=== PATIENT | female | born 1950 | race Caucasian/White ===

== ENCOUNTER 2017-02-08 17:55 | Inpatient (IN) ==
[2017-02-08] MEDS ORDERED: BENTYL PO PRN (20:56)
[2017-02-08] MEDS ORDERED: ZOFRAN IV PRN (20:56)
[2017-02-08 21:29] LABS: MANUAL DIFF NEEDED? NO
[2017-02-08 21:38] LABS: BASO% 0.4 % (0.0-0.8); EOS# 0.16 X1000 (0.0-0.7); EOS% 1.4 % (0.0-10.0); HEMATOCRIT 41.6 % (37.0-47.0); HEMOGLOBIN 13.9 g/dL (12.0-16.0); IMM GRAN# 0.22 X1000 (0.0-0.04); LYMPH# 4.01 X1000 (1.2-3.4); LYMPH% 35.9 % (20.5-51.1); MCH 29.4 PG (27-31); MCHC 33.4 g/dL (33-37); MCV 87.9 FL (81-99); MONO# 0.76 X1000 (0.11-0.59); MONO% 6.8 % (1.7-9.3); MPV 10.8 FL (7.4-10.4); NEUT% 53.5 % (42.2-75.2); PLT 207 X1000 (130-400); RBC 4.73 XMIL (4.2-5.4)
[2017-02-08 21:42] LABS: INR 1.05; PROTIME 11.1 Seconds (9.2-11.7)
[2017-02-08 21:58] LABS: AGAP 14; ALBUMIN 3.9 g/dL (3.5-5.0); ALKALINE PHOSPHATASE 94 U/L (32-104); AMYLASE 31 U/L (20-200); BUN 11 mg/dL (8-22); CALCIUM 8.9 mg/dL (8.8-10.2); CHLORIDE 99 mmol/L (98-107); COSMO 288; GOT 13 U/L (10-30); GPT 12 U/L (10-36); SODIUM 142 mmol/L (136-145); TCO2 29 mmol/L (25-35); TOTAL BILIRUBIN 0.11 mg/dL (0.20-1.00); TOTAL PROTEIN 6.1 g/dL (6.3-8.3)
[2017-02-08 22:46] LABS: SED RATE 3 mm/hr (0-20)
--- NOTE | 2017-02-08 23:05 | HISTORY AND PHYSICAL ---
CHIEF COMPLAINT: 1. Intractable diarrhea for the last 1 month. 2. 5-6 times per day and weight lost 22 pounds. 3. It wakes her from sleep. HISTORY OF PRESENT ILLNESS: She is a 67-year-old white female, basically came to my office for back pain. While I was examining, patient went to the bathroom with episodes of incontinence of stool. According to the family she is getting this 5-6 times a day, along with weight loss. It is also wakes her from sleep. Blood pressure was 80/60. She was admitted to the hospital for observation for impending dehydration, diarrhea and weight loss. Patient was seen before by Dr. Harrison. PAST MEDICAL HISTORY: History of pancreatitis. Right bundle branch block. CAD. Diabetes. Hypertension. Hepatic cyst. Hyperlipidemia. Osteoarthritis. Reflux esophagitis. Intracranial aneurysm repair, status post craniotomy and clipping on the right side. PAST SURGICAL HISTORY: Tonsillectomy. Bypass surgery. Cholecystectomy. Hysterectomy. Tubal ligation. MEDICATIONS: Klonopin 0.5 p.o. b.i.d. Flexeril 5 mg daily. Gabapentin 300 p.o. b.i.d. Lisinopril 20 mg daily. Metformin 1000 p.o. b.i.d. Prilosec 40 mg daily. Paxil 20, 2 tablets daily. Percocet 5 mg daily. Simvastatin 20 daily. Toujeo 20 units night time. ALLERGIES: Not known. SOCIAL HISTORY: , 3 children. Lives in [place]. No alcohol. Disabled. FAMILY HISTORY: Father of blood clots at 87. Mom of heart attack at 63. IMMUNIZATIONS: Influenza vaccine 2015, pneumococcal vaccine 2005. Mammography 03/2014, colonoscopy 01/[address] Harrison. REVIEW OF SYSTEMS: HEENT: No headache. Dizziness upon standing. No vision problem. No sore throat. Neck: No goiter. No lymphadenopathy. No bruit. Cardiopulmonary: No chest pain, shortness of breath, PND, orthopnea. GI: Diarrhea, abdominal cramps, nocturnal periodicity. Possible blood in the stool. Weight loss. : No history of hesitancy, frequency. Back pain. Leg cramps. Neurologic: Dizziness. No focal symptoms. PHYSICAL EXAMINATION: VITAL SIGNS: Afebrile. Blood pressure 90/50 in my office. HEENT: Slightly dry mucous membranes. Atraumatic normocephalic. TMs are normal. Nose and throat within normal limits. NECK: Supple. No lymphadenopathy. No goiter. CHEST: Bilateral air entry. No rales, no wheezing. HEART: Sounds are regular. ABDOMEN: Belly is soft, nontender. Good bowel sounds. No masses palpable. EXTREMITIES: No peripheral edema, cyanosis, clubbing. NEUROLOGIC: Nonfocal. INVESTIGATIONS: CBC: White cell count 11, hematocrit 41, platelets 207,000. PT 11.8, INR 1. SMA7: Sodium 142, potassium 4, chloride 99, BUN 11, creatinine 0.8, glucose 205. B12 is normal. TSH is normal. Amylase, lipase normal. ASSESSMENT AND PLAN: A 67-year-old white female, admitted to the hospital with diarrhea for the last 1 month associated with weight loss. 1. Dehydration with hypotension. Plan is IV fluids. Follow up on stool studies. Previous colonoscopy. CT of the abdomen and pelvis were negative in 2014. 2. Type 2 diabetes. On metformin and Toujeo. Last A1c was 6.2. C-peptide 1.32. 3. Coronary artery disease status post bypass, aspirin and hypertension on lisinopril. 4. Hyperlipidemia on simvastatin. 5. Neuropathy pain. On Neurontin. 6. Chronic anxiety on Klonopin 0.5 p.o. b.i.d. 7. Depression. On Paxil 20 mg daily. We will reconcile home medications after the initial workup and follow up on stool studies. Chronic pain on Percocet by the pain clinic along with the gabapentin. We will follow up on the clinical course. cc: Wilner Salazar MD
[2017-02-08 23:22] LABS: URIC ACID 2.6 mg/dL (2.4-5.7)
[2017-02-08] MEDS: SODIUM CHLORIDE 0.9% INJ SCH (23:40)
[2017-02-08] MEDS: PROTONIX IV SCH (23:42)
[2017-02-08] MEDS: NS 1,000 ML IV SCH (23:43)
[2017-02-09] MEDS: PERCOCET-5 PO SCH ×4 (00:27→21:49)
--- NOTE | 2017-02-09 09:17 | PROGRESS NOTE ---
DATE: 02/09/2017 SUBJECTIVE: The patient had 3 episodes of diarrhea. Low blood pressure. Lower abdominal cramps. The patient was seen before by Dr. Harrison in 2014. She has lost 22 pounds. REVIEW OF SYSTEMS: None reported. PHYSICAL EXAMINATION: Vital Signs: She is afebrile, blood pressure is 109/62. Height 5 feet 2 inches, weights 122 pounds. HEENT: Within normal limits. Neck: Supple. No lymphadenopathy. No goiter. Chest: Clear to auscultation. Heart: Heart sounds are regular. Abdomen: Belly is soft, scaphoid. Tenderness in the lower part of the abdomen. No signs of peritonitis. Extremities: No peripheral edema or cyanosis. Neurologic: no obvious neurological deficits. IMAGING AND LABORATORY DATA: CBC and SMA-7 are normal. Glucose is 142. Total protein 6.1. B12 and TSH are normal. Cultures: Stool for white cell count is none. Stool for blood is negative. Clostridium difficile was negative. Previous colonoscopy is negative. ASSESSMENT AND PLAN: 1. Intractable diarrhea for the last 1 month. So far, no signs of active colitis. Etiology to be determined. It could be irritable bowel syndrome in light of previous workup. Will get a CT of the abdomen and pelvis today. Continue intravenous fluids. Begin with clear liquids. 2. Diabetes. Follow up on sliding scale with insulin coverage. Bentyl as needed. 3. Orthostatic blood pressure changes. Based on the CT, further recommendations will be followed. TIME SPENT: The level of documentation is 25 minutes. cc: Wilner Salazar MD
[2017-02-09 10:47] LABS: URINE MICRO REVIEW NEEDED? NO; URINE SOURCE VOIDED
[2017-02-09 10:56] LABS: BILIRUBIN URINE NEGATIVE (NEGATIVE); BLOOD URINE NEGATIVE (NEGATIVE); COLOR STRAW; GLUCOSE URINE NEGATIVE (NEGATIVE); LEUKOCYTES URINE NEGATIVE (NEGATIVE); NITRITE URINE NEGATIVE (NEGATIVE); PH URINE 5.5; PROTEIN URINE NEGATIVE (NEGATIVE); SP GRAVITY URINE 1.006; TURBIDITY URINE HAZY (CLEAR); UROBILINOGEN URINE NORMAL (NORMAL)
[2017-02-09 10:57] LABS: UR EPITHELIAL CELLS <10 /HPF (<10); URINE BACTERIA NEGATIVE /HPF; URINE RBC <10 /HPF (<10); URINE WBC <10 /HPF (<10)
[2017-02-09] MEDS: HUMALOG SUBQ SCH ×4 (12:20→21:36)
[2017-02-09] MEDS: CULTURELLE PO SCH (12:23)
[2017-02-09] MEDS: NS 1,000 ML IV SCH (12:30)
--- NOTE | 2017-02-09 14:56 | Diag Imaging Result Document ---
PROCEDURE NAME: ABDOMEN/PELVIS W/CONTRAST - 02/09/2017 CT ABDOMEN AND PELVIS WITH ORAL AND INTRAVENOUS CONTRAST: Exam performed with oral and intravenous contrast. A dose-reduction protocol was used. COMPARISON: Compared with 07/05/2016. FINDINGS: The visualized lung bases appear clear. There are multiple hepatic cysts similar to the previous exam. There are no acute abnormalities of the liver, spleen, adrenal glands, or pancreas identified. The gallbladder is surgically absent. There is a small left renal cyst similar to the previous exam. The bilateral kidneys otherwise enhance homogeneously. There is no hydronephrosis. There are no substantially enlarged lymph nodes identified. There is no evidence of bowel obstruction. The appendix appears normal. There is mild uncomplicated colonic diverticulosis. There is possibly mild wall thickening along the left colon from the splenic flexure to the rectum although this may be exaggerated by limited distention of the lumen. The possibility of mild left colitis cannot be excluded. There is no substantial inflammation of pericolic fat seen. There is no free air, free fluid, or abscess identified. Images of the pelvis show postsurgical changes of hysterectomy. There is no abnormal pelvic mass or fluid collection identified. There is possibly some generalized mild thickening of the thickening of the urinary bladder lentz but this is stable. IMPRESSION: 1. Possible mild left colitis. No abscess. No free air. 2. No bowel obstruction. Normal appendix. 3. Stable nonspecific mild thickening of lentz of urinary bladder. 4. Hepatic and renal cysts.
[2017-02-09] MEDS ORDERED: D50W SYRINGE IV ONE (19:53)
[2017-02-09] MEDS ORDERED: D50W SYRINGE ONE (19:58)
[2017-02-09] MEDS: SODIUM CHLORIDE 0.9% INJ SCH (21:49)
[2017-02-09] MEDS: PROTONIX IV SCH (21:49)
[2017-02-10] MEDS: NS 1,000 ML IV SCH ×2 (02:07→14:39)
[2017-02-10] MEDS: PERCOCET-5 PO SCH ×2 (05:39→14:13)
[2017-02-10] MEDS: HUMALOG SUBQ SCH ×3 (06:31→16:09)
[2017-02-10] MEDS ORDERED: FLAGYL 500 MG/NS 100 ML IV SCH (09:00)
[2017-02-10] MEDS: FLAGYL PO SCH ×2 (09:42→16:14)
[2017-02-10] MEDS: CULTURELLE PO SCH (09:42)
[2017-02-10 14:21] VITALS: BP 123/71
--- NOTE | 2017-02-12 18:46 | DISCHARGE SUMMARY ---
ADMISSION DATE: 02/08/2017 DISCHARGE DATE: 02/10/2017 DISCHARGE DIAGNOSES: Uncontrolled diarrhea associated with hypotension, probably from colitis with a spastic colon. SECONDARY DIAGNOSES: 1. Coronary artery disease. 2. Abnormal electrocardiogram with right bundle. 3. Type 2 diabetes. 4. Hypertension. 5. Benign hepatic cyst. 6. Hyperlipidemia. 7. Osteoarthritis. 8. Reflux esophagitis. 9. Status post craniotomy for intracranial aneurysm repair. BRIEF HISTORY: Please see the history and physical that was done on 2016. In brief, she is a 67-year-old white female, who was admitted directly from my office with intractable diarrhea 5 times a day associated with lower abdominal cramps and hypertension. She is tender diffusely in the lower abdomen. Patient was seen before by Dr. Harrison. Initially blood pressure was 90/60. She was started on IV fluids and further workup revealed colitis in the left colon. There was no blood in the stool. Stool cultures were negative. She has been tolerating the diet very well. She was given p.o. metronidazole. At the time of discharge, patient was stable and afebrile. LABORATORIES: CBC: White cell count 11, hematocrit 41, platelets 207,000. PT 11, INR 1.0. SMA 7 is normal. Sugars were around 150. Liver function tests were normal. B12 and thyroid function tests were normal. Urinalysis is clear. Urine pH is normal. Stool for white cells none seen. Stool for occult blood negative. C S was negative. Clostridium difficile was negative. CT scan of the abdomen and pelvis, mild left-sided colitis. No abscess, no free air. No bowel obstruction. Normal appendix. Mild thickening of the lentz of the urinary bladder. Hepatic and renal cysts. DISCHARGE INSTRUCTIONS: 1. Neurontin 300 p.o. b.i.d. 2. Klonopin 0.5 at bedtime. 3. Paxil 20 daily. 4. Prilosec 40 daily. 5. Lisinopril 20 daily. 6. Flexeril 5 p.o. b.i.d. 7. Percocet 7.5 q.8h, as per the pain specialist. 8. Metformin 1000 p.o. b.i.d. 9. Vitamin B12 1000 mcg daily. 10. Carafate 1 g p.o. b.i.d. 11. Potassium 20 mEq daily. 12. Bentyl as needed for diarrhea. 13. Flagyl 500 t.i.d. for 7 days. Patient was given the scripts for all the insulin supplies through the [facility]. Follow up in my office next week. If things do not get better, consider early colonoscopy with her radial saw operator. cc: Wilner Salazar MD MTDD
== END 2017-02-10 17:32 | disposition home or self-care (01) ==
LOC: DIRADM 17:55 → 3N 19:48
PROVIDERS: ADMIT Internal Medicine; ATTEND Internal Medicine

== ENCOUNTER 2019-09-02 17:20 | Inpatient (IN) ==
[2019-09-02] MEDS ORDERED: KLONOPIN PO SCH (21:00)
[2019-09-02] MEDS: NS 1,000 ML IV SCH (21:08)
[2019-09-02] MEDS: PERCOCET-5 PO SCH (21:10)
[2019-09-02] MEDS: NEURONTIN PO SCH (21:10)
[2019-09-02] MEDS: HUMULIN R SUBQ SCH ×2 (21:14→23:09)
[2019-09-02] MEDS ORDERED: INSULIN PEN NEEDLES ONE (21:25)
[2019-09-02] MEDS: TOUJEO SOLOSTAR SUBQ SCH (21:26)
[2019-09-03] MEDS: PERCOCET-5 PO SCH ×3 (04:57→22:06)
[2019-09-03 05:50] LABS: URINE SOURCE CLEAN CATCH
[2019-09-03 05:53] LABS: BILIRUBIN URINE NEGATIVE (NEGATIVE); BLOOD URINE NEGATIVE (NEGATIVE); COLOR YELLOW; GLUCOSE URINE NEGATIVE (NEGATIVE); KETONE URINE NEGATIVE (NEGATIVE); LEUKOCYTES URINE NEGATIVE (NEGATIVE); NITRITE URINE NEGATIVE (NEGATIVE); PROTEIN URINE NEGATIVE (NEGATIVE); SP GRAVITY URINE 1.006; TURBIDITY URINE CLEAR (CLEAR); UROBILINOGEN URINE NORMAL (NORMAL)
[2019-09-03 05:55] LABS: UR EPITHELIAL CELLS <10 /HPF (<10); URINE BACTERIA NEGATIVE /HPF; URINE RBC <10 /HPF (<10); URINE WBC <10 /HPF (<10)
[2019-09-03] MEDS: HUMULIN R SUBQ SCH ×4 (06:16→22:08)
--- NOTE | 2019-09-03 07:23 | EKG Report ---
Test Performed on : 09/03/2019 07:07:00 AM Test Reason : cp Blood Pressure : / mmHG Vent. Rate : 075 BPM Atrial Rate : 075 BPM P-R Int : 152 ms QRS Dur : 126 ms QT Int : 450 ms P-R-T Axes : 074 057 065 degrees QTc Int : 502 ms Normal sinus rhythm. Right bundle branch block Abnormal ECG When compared with ECG of 25-AUG-2011 17:49, Criteria for Inferior infarct are no longer present Confirmed by Martin MCGREGOR, P.J.M ([id number]) on 09/04/2019 3:09:04 PM
[2019-09-03 07:48] LABS: BASO# 0.02 X1000 (0.0-0.2); BASO% 0.2 % (0.0-0.8); EOS# 0.14 X1000 (0.0-0.7); EOS% 1.7 % (0.0-10.0); HEMATOCRIT 40.4 % (37.0-47.0); HEMOGLOBIN 13.2 g/dL (12.0-16.0); IMM GRAN# 0.05 X1000 (0.0-0.04); IMM GRAN% 0.6 % (0.0-0.5); LYMPH# 1.11 X1000 (1.2-3.4); LYMPH% 13.4 % (20.5-51.1); MCH 28.1 PG (27-31); MCHC 32.7 g/dL (33-37); MCV 86.1 FL (81-99); MONO# 0.51 X1000 (0.11-0.59); MONO% 6.1 % (1.7-9.3); MPV 11.4 FL (7.4-10.4); NEUT# 6.48 X1000 (1.4-6.5); PLT 209 X1000 (130-400); RBC 4.69 XMIL (4.2-5.4); RDW 13.3 % (11.5-14.5); WBC 8.31 X1000 (4.8-10.8)
[2019-09-03 07:52] LABS: HEMOGLOBIN A1C 11.6 % (4.8-6.0)
--- NOTE | 2019-09-03 07:57 | HISTORY AND PHYSICAL ---
CHIEF COMPLAINT: Elevated blood sugar of 600. 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 Blood sugars running in the 600's. In my office, blood sugar is 541. She has polyuria, polydipsia, and weight loss. The patient is noncompliant. She is not using FreeStyle Hay sensors and prescriptions. Last A1c 9.2. Basically, admitted to the hospital for hyperglycemic dehydration and follow up. PAST MEDICAL HISTORY: Abnormal EKG with right bundle. History of pancreatitis. Single-vessel bypass with heart disease. Type 2 diabetes. Hypertension. Hepatic cyst. Hyperlipidemia. Intracranial aneurysm repair status post craniotomy clipping on the right side. Osteoporosis. Osteoarthritis. Reflux esophagitis. PAST SURGICAL HISTORY: Tonsillectomy. Bypass single-vessel. Cholecystectomy. Hysterectomy. Tubal ligation. MEDICATIONS: 1. Citracal with vitamin D 1 tablet p.o. b.i.d. 2. Klonopin 0.5 p.o. b.i.d. 3. Percocet from the pain specialist. 4. Gabapentin 300 2 capsules by mouth twice daily. 5. Lasix 40 mg daily. 6. Lisinopril 20 mg daily. 7. Metformin 1000 p.o. b.i.d. 8. Prilosec 40 daily. 9. Potassium 10 mEq daily. 10. Simvastatin 20 daily. 11. Toujeo 20 units once daily. 12. Zofran as needed. ALLERGIES: Not known. SOCIAL HISTORY: . Three children. Living in [place]. Smoking. No alcohol. FAMILY HISTORY: Father of blood clot at 87. Mom of heart attack. Sister of asthma. HEALTH MAINTENANCE: Flu vaccine 2018. Pneumococcal 2015. Last physical February of 2018. Colonoscopy January of [address] Harrison. Eye exam by Dr. Ybeoah. REVIEW OF SYSTEMS: HEENT: No headache. No vision problems. No earache. No sore throat. Neck: No goiter. No lymphadenopathy. No bruit. Cardiopulmonary: No chest pain, shortness of breath, PND, or orthopnea. GI: No nausea, vomiting, or abdominal pain. : No history of hesitancy, frequency, dysuria and no swelling of legs. No joint pain. Neurologic: No focal symptoms or weakness. PHYSICAL EXAMINATION: VITAL SIGNS: Temperature is 97 degrees, pulse is 70. Vitals are stable. 5 feet, 2 inches, and 97 pounds. HEENT: Atraumatic, normocephalic. Craniotomy scar present on the right side. Pupils equal, and reactive to light. Tongue is in midline. Dry mucous membranes. No oral thrush. NECK: Supple. No lymphadenopathy. CHEST: Bilateral air entry. HEART: Sounds are regular. ABDOMEN: Belly is soft and nontender. Scaphoid. No obvious deficits. INVESTIGATIONS: In my office, blood sugar is 540. ASSESSMENT AND PLAN: A 69-year-old white female admitted to the hospital hyperglycemic and dehydration. Follow up on the labs in the morning. Continue IV fluids. Sliding scale with insulin coverage and metformin. Also, we will use Toujeo and reconcile home medications. Will follow up. cc: Wilner Salazar MD MTDD
[2019-09-03 08:14] LABS: AGAP 14; BUN 11 mg/dL (8-22); CALCIUM 9.1 mg/dL (8.8-10.2); CHLORIDE 103 mmol/L (98-107); COSMO 295; CREATININE 0.5 mg/dL (0.5-0.9); ESTIMATED GFR > 60; GLUCOSE 287 mg/dL (70-104); MAGNESIUM 1.5 mg/dL (1.5-2.7); POTASSIUM 4.4 mmol/L (3.5-5.1); SODIUM 143 mmol/L (136-145); TCO2 26 mmol/L (25-35)
[2019-09-03] MEDS ORDERED: NICODERM PATCH TD PRN (08:53)
[2019-09-03] MEDS ORDERED: PAXIL PO SCH (09:00)
[2019-09-03] MEDS: KLOR-CON PO SCH (09:52)
[2019-09-03] MEDS: NEURONTIN PO SCH ×3 (09:52→22:08)
[2019-09-03] MEDS: GLUCOPHAGE XR PO SCH ×2 (09:52→17:39)
[2019-09-03] MEDS: CULTURELLE PO SCH (09:52)
[2019-09-03] MEDS: PRILOSEC PO SCH (09:53)
[2019-09-03] MEDS: NS 1,000 ML IV SCH (10:11)
[2019-09-03] MEDS: CYMBALTA PO SCH (11:56)
[2019-09-03] MEDS ORDERED: KLONOPIN PO SCH (21:00)
[2019-09-03] MEDS: TOUJEO SOLOSTAR SUBQ SCH (22:10)
--- NOTE | 2019-09-03 22:50 | PROGRESS NOTE ---
DATE: 09/03/2019 SUBJECTIVE: The patient is noncompliant with diet and wants to reconcile home medications. PHYSICAL EXAMINATION: Vital signs: Temperature is 98 degrees. Vitals are stable. HEENT: Within normal limits. Neck: Supple. Chest: Clear. Heart: Sounds are regular. Abdomen: Belly is soft, nontender. Neurologic: No obvious deficits. INVESTIGATIONS: CBC: White cell count 8.3, hematocrit 40, platelet 209,000. Sodium 143, potassium 4.4, chloride 103, BUN 11, creatinine 0.5, glucose 287. A1c 11.6. Magnesium and phosphorus were normal. ASSESSMENT AND PLAN: 1. Uncontrolled diabetes due to noncompliance. We will start her on Lantus 25 units at bedtime. IV fluids. Outpatient diabetic teaching classes on metformin 1000 p.o. b.i.d. 2. Nicotrol cessation programs and nicotine abuse. 3. Gastrointestinal prophylaxis. 4. Prilosec and reconcile home medicines for Cymbalta, gabapentin, and she is also taking oxycodone for chronic pain. 5. Coronary artery disease, stable. 6. Anxiety on Klonopin. LEVEL OF DOCUMENTATION: 35 minutes. cc: Wilner Salazar MD
[2019-09-04] MEDS: TOUJEO SOLOSTAR SUBQ SCH (00:03)
[2019-09-04] MEDS: NS 1,000 ML IV SCH (04:08)
[2019-09-04] MEDS: HUMULIN R SUBQ SCH (06:48)
[2019-09-04] MEDS: PERCOCET-5 PO SCH (06:48)
[2019-09-04 07:51] VITALS: BP 137/71
[2019-09-04] MEDS ORDERED: PREVNAR 13 IM ONE (09:03)
[2019-09-04] MEDS: PRILOSEC PO SCH (10:04)
[2019-09-04] MEDS: CYMBALTA PO SCH (10:04)
[2019-09-04] MEDS: KLOR-CON PO SCH (10:04)
[2019-09-04] MEDS: NEURONTIN PO SCH (10:05)
[2019-09-04] MEDS: CULTURELLE PO SCH (10:05)
[2019-09-04] MEDS: GLUCOPHAGE XR PO SCH ×2 (10:05→10:07)
--- NOTE | 2019-09-05 18:47 | DISCHARGE SUMMARY ---
ADMISSION DATE: 09/02/2019 DISCHARGE DATE: 09/04/2019 DIAGNOSIS: Hyperglycemic dehydration due to noncompliance and also insulin-requiring type 2 diabetes, C-peptide 0.4. SECONDARY DIAGNOSIS: Abnormal EKG with right bundle CAD with a single-vessel bypass surgery, hypertension, benign hepatic cyst, hyperlipidemia, status post intracranial aneurysm repair, osteoporosis, osteoarthritis, and reflux esophagitis. BRIEF HISTORY: Please see the history and physical on 09/02/2019. In brief she is a 69-year-old white female who was admitted to the hospital after she was found to have a blood sugar 600, weight loss, polyuria, polydipsia. HOSPITAL COURSE: The patient was not taking her medicines properly, also not monitoring the blood sugars on FreeStyle Hay. She was started on long-acting insulin. She was on metformin. Last A1c 9.2, this time is 11.2. Blood glucose monitoring was not doing on a daily basis. She was also eating a lot of sugar. The patient was given IV fluids, insulin. C-peptide 0.4. At this time, the patient needs insulin around the clock. I explained at length, long-acting insulin 30 units, Toujeo 30 units once daily and NovoLog on a sliding scale as directed. At the time of discharge patient is stable. LABS FOLLOWS: CBC: White cell count 8.3, hematocrit 40, platelets 209,000. Sodium 143, potassium 4.4, BUN 11, creatinine 0.5 glucose 287, anion gap is 14. A1c 11.4. C-peptide is 0.4. Electrolytes were normal. Cardiac enzymes were normal. Urinalysis is clear. DISCHARGE INSTRUCTIONS: 1. Pneumococcal 13 vaccine was given 09/04/2019, pneumococcal vaccine 23 was given 07/11/2016. Quit smoking, and she is doing a polypharmacy for her body weight. She is taking too much Neurontin and chronic pain Percocet. I had a long discussion and: Discontinue Klonopin, discontinue gabapentin at the present doses. Will use Neurontin 300 once daily, Prilosec 40 daily, lisinopril 20 daily, Percocet 7.5 p.o. t.i.d., discontinue metformin, potassium 20 mEq daily, Cymbalta 60 daily, Toujeo 30 units daily and NovoLog insulin 10 as directed on sliding scale with insulin coverage as discussed. 2. Follow up in my office in 2 weeks. cc: Wilner Salazar MD
== END 2019-09-04 10:22 | disposition home or self-care (01) | DRG 638 ==
LOC: DIRADM → OBSVTOIN 17:20 → 3N 19:08
PROVIDERS: ADMIT Internal Medicine; ATTEND Internal Medicine

== ENCOUNTER 2019-10-25 10:16 | Inpatient (IN) ==
[2019-10-25] MEDS ORDERED: HUMULIN R IV ONE (11:28)
[2019-10-25] MEDS: NS 1,000 ML IV SCH (12:09)
[2019-10-25 12:50] LABS: BASO# 0.04 X1000 (0.0-0.2); BASO% 0.6 % (0.0-0.8); EOS# 0.44 X1000 (0.0-0.7); EOS% 6.4 % (0.0-10.0); HEMATOCRIT 42.7 % (37.0-47.0); HEMOGLOBIN 13.8 g/dL (12.0-16.0); IMM GRAN# 0.03 X1000 (0.0-0.04); IMM GRAN% 0.4 % (0.0-0.5); LYMPH% 27.7 % (20.5-51.1); MCH 28.6 PG (27-31); MCHC 32.3 g/dL (33-37); MCV 88.6 FL (81-99); MONO# 0.44 X1000 (0.11-0.59); MONO% 6.4 % (1.7-9.3); MPV 11.4 FL (7.4-10.4); NEUT# 4.02 X1000 (1.4-6.5); NEUT% 58.5 % (42.2-75.2); PLT 221 X1000 (130-400); RBC 4.82 XMIL (4.2-5.4); RDW 13.4 % (11.5-14.5); WBC 6.87 X1000 (4.8-10.8)
[2019-10-25 13:17] LABS: AGAP 10; BUN 12 mg/dL (8-22); CALCIUM 9.1 mg/dL (8.8-10.2); CHLORIDE 98 mmol/L (98-107); COSMO 287; CREATININE 0.7 mg/dL (0.5-0.9); ESTIMATED GFR > 60; GLUCOSE 365 mg/dL (70-104); SODIUM 136 mmol/L (136-145); TCO2 28 mmol/L (25-35)
[2019-10-25] MEDS: HUMULIN R SUBQ SCH ×2 (17:22→21:31)
[2019-10-25] MEDS ORDERED: CITRACAL + D PO SCH (17:45)
--- NOTE | 2019-10-25 18:38 | HISTORY AND PHYSICAL ---
CHIEF COMPLAINT: Uncontrolled diabetes, hyperglycemia, polyuria, polydipsia. HISTORY OF PRESENT ILLNESS: She is a 69-year-old, white female, who was not followed up from the last admission for diabetes management. She is noncompliant. Her blood sugar was running 700 yesterday. She has anion gap of 18. She came to my office. The patient was admitted directly for IV fluids and to optimize the treatment for diabetes. The patient was given 20 units of insulin. Blood sugar is coming down. PAST MEDICAL HISTORY: 1. Abnormal EKG with right bundle. 2. History of pancreatitis. 3. Single-vessel bypass with heart disease. 4. Type 2 diabetes. 5. Hypertension. 6. Hepatic cyst. 7. Hyperlipidemia. 8. Intracranial aneurysm repair, status post craniotomy and clipping on the right side. 9. Osteoporosis. 10. Osteoarthritis. 11. Reflux esophagitis. PAST SURGICAL HISTORY: Tonsillectomy, single-vessel bypass, cholecystectomy, hysterectomy, tubal ligation. ALLERGIES: Not known. SOCIAL HISTORY: , 3 children, living in [place]. History of smoking 1 pack a day for several years. No alcohol. HEALTH MAINTENANCE: Flu vaccine 2018, pneumococcal 2015, colonoscopy 2014. MEDICATIONS: Prilosec 40 daily, lisinopril 20 daily, Percocet 7.5 t.i.d., potassium 20 mEq daily, Cymbalta 60 daily, Toujeo 30 units at bedtime, calcium with vitamin D one tablet daily, Celebrex 100 daily, gabapentin 300 p.o. b.i.d. REVIEW OF SYSTEMS: No headache, vision problem, dryness of the mouth.Neck: No goiter. No lymphadenopathy. No bruit. Cardiopulmonary: No chest pain, shortness of breath, PND, orthopnea. Gastrointestinal: No nausea, vomiting, abdominal pain. Polyuria. No swelling of legs. No joint pain. Neurologic: No focal symptoms or weakness. PHYSICAL EXAMINATION: VITAL SIGNS: Temperature is 97.4 degrees, pulse is 70. Vitals are stable. Height 5 feet 2 inches, 95 pounds. HEENT: Pupils equal, reactive to light. No oral thrush. NECK: Supple. No lymphadenopathy. CHEST: Bilateral air entry. CARDIOVASCULAR: Heart sounds are regular. No murmur. GASTROINTESTINAL: Belly is soft, nontender. Good bowel sounds. EXTREMITIES: No peripheral edema or cyanosis. No obvious neurological deficits. INVESTIGATIONS: CBC: White cell count 6.8, hematocrit 42, platelets 221,000. SMA 7 is normal. Glucose 365. Hemoglobin A1c 12. ASSESSMENT AND PLAN: A 69-year-old, white female, basically admitted to the hospital hyperglycemic, dehydration. Plan is IV fluids. Follow up on electrolytes and will maintain the insulin 30 units along with the diet. We will check the C-peptide in the morning. Reconcile home medicines and comply with diet. Dr. Rakesh Medel is going to follow up. If she is stable, discharge her over the weekend. cc: Wilner Salazar MD
[2019-10-25] MEDS: TOUJEO SOLOSTAR SUBQ SCH (21:21)
[2019-10-25] MEDS: PERCOCET-5 PO SCH (21:22)
[2019-10-26] MEDS: NS 1,000 ML IV SCH ×2 (03:15→13:11)
[2019-10-26] MEDS: HUMULIN R SUBQ SCH ×4 (06:43→23:18)
[2019-10-26 07:45] LABS: AGAP 8; BUN 12 mg/dL (8-22); CALCIUM 8.4 mg/dL (8.8-10.2); CHLORIDE 108 mmol/L (98-107); COSMO 289; CREATININE 0.5 mg/dL (0.5-0.9); ESTIMATED GFR > 60; GLUCOSE 140 mg/dL (70-104); MAGNESIUM 1.7 mg/dL (1.5-2.7); PHOSPHORUS 3.9 mg/dL (2.7-4.5); POTASSIUM 3.8 mmol/L (3.5-5.1); SODIUM 144 mmol/L (136-145); TCO2 28 mmol/L (25-35)
[2019-10-26] MEDS ORDERED: NICODERM PATCH TD ONE (08:06)
[2019-10-26] MEDS: PERCOCET-5 PO SCH ×3 (09:35→21:52)
[2019-10-26] MEDS: CYMBALTA PO SCH (09:36)
[2019-10-26] MEDS: PRINIVIL PO SCH (09:36)
[2019-10-26] MEDS: KLOR-CON PO SCH (09:36)
[2019-10-26] MEDS: CELEBREX PO SCH (09:37)
[2019-10-26] MEDS: NEURONTIN PO SCH (09:42)
[2019-10-26] MEDS ORDERED: DULCOLAX PO ONE (09:54)
[2019-10-26] MEDS: ZOFRAN IV PRN (13:11)
--- NOTE | 2019-10-26 13:41 | PROGRESS NOTE ---
DATE: 10/26/2019 Vital signs stable with temperature 98 degrees, heart rate 76, respirations 20, blood pressure 153/76, O2 saturation on room air 99%. LABORATORY: Sodium 144, potassium 3.8, BUN 12, creatinine 0.5, blood sugar 140. Hemoglobin A1c yesterday 12.0. The patient is apparently poorly compliant, although she admits to taking her insulin regularly. She is on 30 units glargine insulin at bedtime. She is receiving sliding scale here but has not needed much to control her sugar. She states that she has lost about 40 pounds over the last year. She complains with constipation today. Chest is clear. Abdomen is soft. PLAN: Add laxative. If her sugar remains fairly stable by tomorrow, she may be discharged. C- peptide done this morning is pending. cc: MD Wilner Conley MD
[2019-10-26] MEDS: TOUJEO SOLOSTAR SUBQ SCH (21:55)
[2019-10-27] MEDS: NS 1,000 ML IV SCH ×2 (03:38→16:12)
[2019-10-27] MEDS: HUMULIN R SUBQ SCH ×2 (06:42→11:41)
[2019-10-27 06:50] LABS: AGAP 9; BUN 9 mg/dL (8-22); CALCIUM 8.3 mg/dL (8.8-10.2); CHLORIDE 106 mmol/L (98-107); COSMO 283; CREATININE 0.4 mg/dL (0.5-0.9); ESTIMATED GFR > 60; GLUCOSE 128 mg/dL (70-104); POTASSIUM 3.5 mmol/L (3.5-5.1); SODIUM 142 mmol/L (136-145); TCO2 27 mmol/L (25-35)
[2019-10-27] MEDS ORDERED: TYLENOL PO PRN (07:50)
[2019-10-27] MEDS ORDERED: TYLENOL PO ONE (08:39)
[2019-10-27] MEDS ORDERED: MUCINEX DM PO SCH (09:00)
[2019-10-27] MEDS ORDERED: TOPROL XL PO SCH (09:00)
[2019-10-27] MEDS ORDERED: ZITHROMAX PO SCH (09:00)
--- NOTE | 2019-10-27 09:08 | PROGRESS NOTE ---
DATE: 10/27/2019 OBJECTIVE: Vital Signs: Temperature 98.3 degrees, heart rate 76, respirations 18, blood pressure 173/80, O2 saturation on room air 95%. Blood sugar is much improved. Sugar this morning was 121. Highest sugar yesterday was 168. She complains of nasal congestion, yellow rhinorrhea, moderate cough and congestion in her chest. Lungs: Clear to auscultation. Abdomen: Soft. PLAN: Zithromax 500 mg daily, Mucinex DM b.i.d., Tylenol for headache, and metoprolol 50 mg 1 daily for blood pressure. She can probably either be discharged this afternoon or tomorrow morning. cc: MD Wilner Conley MD
[2019-10-27] MEDS: PERCOCET-5 PO SCH ×2 (09:47→16:10)
[2019-10-27] MEDS: KLOR-CON PO SCH (09:48)
[2019-10-27] MEDS: CYMBALTA PO SCH (09:48)
[2019-10-27] MEDS: NEURONTIN PO SCH (09:48)
[2019-10-27] MEDS: CELEBREX PO SCH (09:49)
[2019-10-27] MEDS: PRINIVIL PO SCH (09:49)
[2019-10-27] MEDS: ZOFRAN IV PRN (11:41)
[2019-10-27 17:10] VITALS: BP 151/67
--- NOTE | 2019-10-27 17:37 | DISCHARGE SUMMARY ---
ADMISSION DATE: 10/25/2019 DISCHARGE DATE: 10/27/2019 FINAL DIAGNOSES: 1. Uncontrolled diabetes with hyperglycemia. 2. Chronic obstructive pulmonary disease. 3. Mild bronchitis. 4. Dyspepsia. 5. Neuropathy. 6. Hypertension. 7. Chronic back pain. 8. Smoker. DISCHARGE MEDICATIONS: Usual medications at home plus Zithromax 500 mg (3) to take 1 daily starting tomorrow. She had 1 dose of 500 mg today. HISTORY: This is one of several [facility] admissions for this 69-year-old white female, diabetic, noncompliant, who presented to Dr. Salazar's office with sugars in the 700 range. She was admitted and given intravenous insulin. Sugar gradually came down until yesterday. It was 142. Highest sugar since that time was 168. Sugar this afternoon was 232. It was 121 this morning. INITIAL LABORATORY: Sugar 384, sodium 136, potassium 4.0, BUN 12, creatinine 0.7. Hemoglobin A1c 12.0. HOSPITAL COURSE: She is feeling much better and sugars are improved. She has a little bronchitis with cough and mild yellowish sputum production. She was started on Zithromax. She is feeling better this afternoon and desires to go home. She is discharged home on her usual medicine plus Zithromax and is to see Dr. Salazar in his office by the end of the week. cc: MD Wilner Conley MD
== END 2019-10-27 18:45 | disposition home or self-care (01) | DRG 639 ==
LOC: DIRADM 10:16 → EDIPHOLD 11:19 → 1N 13:19
PROVIDERS: ADMIT Internal Medicine; ATTEND Internal Medicine